=== PATIENT | male | born 1975 | race Caucasian/White ===

== ENCOUNTER 2016-09-15 07:58 | Day surgery (SDC) | payer OTHER ==
[~2016-09-15] VITALS: Ht 198.1 cm; Wt 143.8 kg
--- NOTE | ~2016-09-15 | OR ---
PATIENT'S NAME: [facility] AGE: 41 Y [address] . ROOM: [place] [address] LOCATION: [facility] [place] ADMIT DATE: 09/15/2016 OR/Procedure Report DISCHARGE DATE: FAMILY PHYSICIAN: Azalea Huerta PA-C ATTENDING PHYSICIAN: SHILPA BIANCHI SURGEON: Shilpa Bianchi MD FAST FOOD DELIVERY DRIVER: None. 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 POSTOPERATIVE DIAGNOSES: 1. 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 2. Cervical lymphadenopathy of the right neck. PROCEDURE: 1. Excision of right neck congenital cyst. 2. Excisional biopsy, deep cervical lymph node. ANESTHESIA: General endotracheal. COMPLICATIONS: None. ESTIMATED BLOOD LOSS: 75 mL. 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 This was ligated at this junction. The cyst did rupture near the very end of the case. INDICATION: The patient is a 41-year-old male with a progressively growing right neck mass, which was aspirated in the clinic with purulence removed, placed on antibiotics, and biopsy had also been performed with the needle and returned suspicious for branchial cleft. Unfortunately, the cyst refilled with fluid; and therefore, we discussed excision of this area. The patient provided informed consent. DESCRIPTION OF PROCEDURE: The patient was brought from the preoperative area to the operating suite and placed upon table in supine position. All pressure points were padded. Time-out was performed correctly identifying the patient procedure. General endotracheal anesthesia was initiated without paralysis. The right neck was exposed, cleansed with alcohol, and marked and injected with 1% lidocaine with epinephrine in a horizontal skin crease overlying the cyst. This was about a 9 cm incision. The neck was prepped and draped. Incision was then made through the skin and subcutaneous tissue with a knife PATIENT'S NAME: [facility] AGE: 41 Y [address] ROOM: [place] [address] LOCATION: [facility] [place] ADMIT DATE: 09/15/2016 OR/Procedure Report DISCHARGE DATE: FAMILY PHYSICIAN: Azalea Huerta PA-C ATTENDING PHYSICIAN: SHILPA BIANCHI and carried down with cautery through the platysma. Superior and inferior subplatysmal flaps were elevated. Dissection was performed directly down onto the cyst and then bluntly around the cyst, proceeding in all directions, coming to the cyst stalk near the tonsillar fossa. This was tedious and difficult due to significant fibrosis, scarring, and adhesions. Sharp dissection was required in multiple areas due to significant scar formation densely down onto the cyst. There was a portion of digastric muscle wrapped up with the cyst wall itself and as this area was carefully dissected the cyst did unfortunately rupture. All of the purulent fluid from within was suctioned out of the wound, which was irrigated multiple times with bacitracin infused saline. The cyst remnant was grasped, dissected down to its stalk, suture-ligated just deep to the mucosa of the tonsil, and sent off for permanent specimen. The neck was once again cleansed. Spot bipolar was utilized for hemostasis as necessary. Valsalva maneuver was performed. No areas of bleeding were noted. The area where the cyst had ruptured was excised completely including a portion of digastric muscle to ensure complete cyst excision. The area was once again cleansed and a 10-Congolese drain inserted. The wound was then closed with the platysma layer of Vicryl, followed by a deep layer of Vicryl, followed by a running 5-0 fast gut suture for the skin. The KALANI drain was sutured into place with silk. The entire area was cleansed and ointment applied. The patient tolerated this well. MD REI METZGER/erma /[id number] d: 09/15/16 2329 t: 09/22/16901, OPERATIVE SUMMARY
[~2016-09-15 07:58] MED LIST: CPAP INH; NORVASC5 MG PO
[2016-09-15] MEDS ORDERED: CLEOCIN HCL300 MG PO (08:50)
--- NOTE | 2016-09-16 03:55 | NUR ---
Significant Event:pt is a/o x3. pt has tolerated po intake well, iv to l hand sl. dressing to r neck is c/d/i with rivera drain. had 13ml output. pt uses c-pap@ noc, had pt weaned down to ra but needed 1L while sleeping. pt has recieved norco 2 tabs x2 last @ 0015. pt is a sba to bathroom. vss and afebrile. Follow up:plan for discharge home today.
[2016-09-16 06:18] LABS: BASOPHIL % 0.3 %; EOSINOPHIL % 0.1 %; HEMATOCRIT 39.7 % (37.0-53.0); HEMOGLOBIN 13.3 g/dL (12.0-17.0); IMMATURE GRANULOCYTE # 0.1 K/uL (0.0-0.3); IMMATURE GRANULOCYTE % 0.5 %; MCH 29.5 pg (27.0-34.0); MCHC 33.5 gm/dL (32.0-36.5); MONOCYTE % 9.2 %; MPV 10.1 fl (9.4-12.4); NEUTROPHIL # (ANC) 8.6 K/uL (1.4-9.0); NEUTROPHIL % 80.9 %; NRBC % 0 /100WBC (0-0.00); PLATELET COUNT 240 K/uL (150-450); RBC 4.51 M/uL (4.00-6.00); RDW-CV 11.9 % (11.9-14.6); WBC 10.6 K/uL (4.0-11.0)
[2016-09-16 06:29] LABS: ANION GAP 11.3 (10.0-19.0); BLOOD UREA NITROGEN 9 mg/dL (6-24); CALCIUM 8.4 mg/dL (8.5-10.5); CHLORIDE 106 mMol/L (96-110); CO2 27 mMol/L (22-32); CREATININE 0.7 mg/dL (0.6-1.3); ESTIMATED GFR (MDRD EQUATION) > 60; POTASSIUM 4.3 mMol/L (3.7-5.1); SODIUM 140 mMol/L (135-145)
[2016-09-16] MEDS ORDERED: BACITRACIN1 PKT TOP (10:09)
[2016-09-16] MEDS ORDERED: NORCO 5-325 TA1 EACH PO (10:10)
--- NOTE | 2016-09-16 11:00 | NUR ---
DISCHARGE: Pt. was explained discharge instructions, instructed on incision care, and educated on new medication: norco. Verbalized understanding of teaching, no questions or concerns. IV removed by nurse. Left with all belongings and prescriptions. Taken to front door by aide and driven home by . Out at 1100.
== END 2016-09-16 11:10 | disposition disaster alternative care site (69) ==
LOC: GMSU 07:58 → GSDC 07:58 → GPOC 09:00 → GMSU 16:57 → GPOC 09-16 08:00 → GSDC 09-16 11:10
PROVIDERS: Otolaryngology
PROC: 07B10ZX Excision of Right Neck Lymphatic, Open Approach, Diagnostic (ICD-10-PCS; principal; 2016-09-15)
PROC: 0JB50ZZ Excision of Left Neck Subcutaneous Tissue and Fascia, Open Approach (ICD-10-PCS; 2016-09-15)
DX: Q18.0 Sinus, fistula and cyst of branchial cleft (principal); R59.1 Generalized enlarged lymph nodes; I10 Essential (primary) hypertension; E66.9 Obesity, unspecified; Z68.41 Body mass index [BMI] 40.0-44.9, adult; Z79.2 Long term (current) use of antibiotics; Z79.899 Other long term (current) drug therapy
CPT/HCPCS: J0690; J1170; J2001; J3010; J7030; J7120